=== PATIENT | male | born 1930 | race African-American/Black ===

== ENCOUNTER 2019-07-11 03:06 | Inpatient (IN) | payer OTHER ==
[~2019-07-11] VITALS: Ht 182.9 cm; Wt 79.4 kg
[2019-07-11] VITALS (9 sets, daily range): BP systolic 108–161; BP diastolic 50–78
[2019-07-11] MEDS ORDERED: ONDANSETRON HCL 4MG/2ML INJ IV STA (03:18)
[2019-07-11] MEDS ORDERED: NITROGLYCERIN OINT 1GM/INCH UDPKT TD ONE (03:30)
[2019-07-11 03:43] LABS: BASOPHILS % 0.6 % (0.0-2.0); CHLORIDE 109 mEq/L (98-107); EOSINOPHILS % 1.8 % (0.0-5.0); HEMATOCRIT. 33.1 % (42.0-52.0); LYMPHOCYTES % 8.2 % (20.0-50.0); MEAN CORPUSCULAR HEMOGLOBIN 26.9 pg (28.0-32.0); MEAN CORPUSCULAR VOLUME 81.4 fL (80.0-94.0); MEAN PLATELET VOLUME 7.5 fl (7.4-10.4); NEUTROPHILS % 83.4 % (40.0-76.0); PLATELET 161 x1000/uL (130-400); RED BLOOD CELL COUNT 4.07 mill/uL (4.7-6.1); RED CELL DISTRIBUTION WIDTH 15.6 % (11.6-14.6)
[2019-07-11 04:18] LABS: BG BASE EXCESS -3.7 mmol/L (-2.0-2.0); BG BILEVEL POS AIRWAY PRESSURE 15/5; BG CARBOXYHEMOGLOBIN 0.9 % (0.5-1.5); BG FRACTION INSPIRED OXYGEN 60; BG METHEMOGLOBIN 0.5 % (0.0-1.5); BG OXYHEMOGLOBIN 95.6 % (94.0-97.0); BG PCO2 42.4 mmHg (35.0-45.0); BG PH 7.333 (7.350-7.450); BG PO2 98.1 mmHg (75.0-100.0); BG SAMPLE SITE LEFT RADIAL; BG TOTAL HEMOGLOBIN 12.3 g/dL (12.0-18.0); BG VENT MODE MASK - BIPAP; BG VENT RATE 16 set
[2019-07-11] MEDS ORDERED: MORPHINE SULFATE 2 MG/ML CPJ (NOT FOR IM USE) IV PRN (07:00)
[2019-07-11] MEDS ORDERED: CLONIDINE 0.1MG TABLET PO PRN (07:00)
[2019-07-11] MEDS ORDERED: ONDANSETRON HCL 4MG/2ML INJ IV PRN (07:00)
[2019-07-11] MEDS ORDERED: DOCUSATE SODIUM 100MG CAPSULE PO PRN (07:00)
[2019-07-11] MEDS ORDERED: AMLODIPINE 10MG TABLET PO SCH (09:00)
[2019-07-11] MEDS ORDERED: FUROSEMIDE 40MG/4ML VIAL IV SCH ×2 (09:00→17:15)
[2019-07-11] MEDS ORDERED: ASPIRIN 81MG EC TABLET PO SCH (09:00)
[2019-07-11] MEDS: ACETAMINOPHEN 325MG TABLET PO PRN (12:10)
[2019-07-11] MEDS ORDERED: ENOXAPARIN 40MG/0.4ML SYR SUBCUT SCH (13:00)
[2019-07-11] MEDS ORDERED: NITROGLYCERIN 0.2MG/HR PATCH TOP SCH (14:00)
[2019-07-11] MEDS ORDERED: LEVOFLOXACIN 500MG PREMIX 100 ML IV SCH (14:00)
[2019-07-11] MEDS ORDERED: IPRATROPIUM/ALBUTEROL 0.5-3(2.5)MG/3ML NEB HHN PRN (15:45)
[2019-07-11] MEDS: HYDROCODONE/ACETAMINOPHEN 5/325MG TABLET PO PRN ×2 (17:27→22:02)
[2019-07-11] MEDS ORDERED: DEXTROSE 50% WATER 50ML SYRINGE IV PRN (19:30)
[2019-07-11] MEDS: BLOOD SUGAR DIAGNOSTIC STRIP TEST SCH (21:52)
[2019-07-11] MEDS: ENOXAPARIN 80MG/0.8ML SYR SUBCUT SCH (21:54)
[2019-07-11] MEDS: INSULIN LISPRO 100 UNITS/ML SUBCUT SCH (22:00)
[2019-07-12] VITALS (30 sets, daily range): BP systolic 111–161; BP diastolic 28–109
[2019-07-12] MEDS: IPRATROPIUM/ALBUTEROL 0.5-3(2.5)MG/3ML NEB HHN SCH ×6 (00:35→21:08)
[2019-07-12 01:08] LABS: HEMATOCRIT. 34.1 % (42.0-52.0); HEMOGLOBIN. 11.4 g/dL (14.0-18.0); MEAN CORPUSCULAR HEMOGLOBIN 27.7 pg (28.0-32.0); PLATELET 162 x1000/uL (130-400); RED BLOOD CELL COUNT 4.11 mill/uL (4.7-6.1); RED CELL DISTRIBUTION WIDTH 15.6 % (11.6-14.6)
[2019-07-12 01:14] LABS: CHLORIDE 107 mEq/L (98-107)
[2019-07-12 01:24] LABS: CREATINE KINASE MB FRACTION 60.5 ng/mL (0.5-3.6); D-DIMER 11.69 mg/L FEU (<0.50); HDL CHOLESTEROL 22 mg/dL (40-59); INR 1.2; LDL CHOLESTEROL 85 mg/dL (5-100); PROTHROMBIN TIME 12.7 sec (9.6-11.0)
[2019-07-12 01:25] LABS: CREATINE KINASE 994 IU/L (39-308); T4 FREE 0.98 ng/dL (0.76-1.46)
[2019-07-12] MEDS: ENOXAPARIN 80MG/0.8ML SYR SUBCUT SCH ×2 (03:20→20:29)
[2019-07-12 04:32] LABS: PLATELET ESTIMATE NORMAL
[2019-07-12] MEDS: ACETAMINOPHEN 325MG TABLET PO PRN ×2 (06:56→23:53)
[2019-07-12] MEDS ORDERED: SODIUM CHLORIDE 0.9% 500 ML IV STA (07:22)
[2019-07-12] MEDS: BLOOD SUGAR DIAGNOSTIC STRIP TEST SCH ×5 (07:45→20:29)
[2019-07-12 08:08] LABS: BG BASE EXCESS -1.6 mmol/L (-2.0-2.0); BG BILEVEL POS AIRWAY PRESSURE 15/5; BG CARBOXYHEMOGLOBIN 0.1 % (0.5-1.5); BG DEOXYHEMOGLOBIN 0.9 % (0.0-5.0); BG FRACTION INSPIRED OXYGEN 100; BG HCO3 ACT 23.4 mmol/L (22.0-26.0); BG METHEMOGLOBIN 0.3 % (0.0-1.5); BG OXYGEN SATURATION 99.1 % (92.0-98.5); BG OXYHEMOGLOBIN 98.7 % (94.0-97.0); BG PCO2 40.6 mmHg (35.0-45.0); BG PH 7.378 (7.350-7.450); BG PO2 201.7 mmHg (75.0-100.0); BG SAMPLE SITE RIGHT BRACHIAL; BG TOTAL HEMOGLOBIN 11.4 g/dL (12.0-18.0); BG VENT MODE MASK - BIPAP; BG VENT RATE 16 set
[2019-07-12] MEDS: INSULIN LISPRO 100 UNITS/ML SUBCUT SCH ×3 (08:20→20:30)
[2019-07-12] MEDS: ASPIRIN 81MG TABLET PO SCH (09:28)
[2019-07-12] MEDS ORDERED: SODIUM CHLORIDE 10% FOR INH 15ML VIAL NEB INH SCH (10:00)
[2019-07-12] MEDS: CLOPIDOGREL 75MG TABLET PO SCH (11:58)
[2019-07-12] MEDS ORDERED: VANCOMYCIN 1500MG in DEXTROSE 5% WATER 250ML IV SCH (12:30)
[2019-07-12] MEDS ORDERED: LEVOFLOXACIN 250MG PREMIX 50 ML IV SCH (14:00)
[2019-07-12] MEDS: CEFTRIAXONE 1 G PREMIX 50 ML IV SCH (15:59)
[2019-07-12] MEDS: FAMOTIDINE 20MG/2ML VIAL IV SCH (15:59)
[2019-07-13] VITALS (23 sets, daily range): BP systolic 115–164; BP diastolic 49–98
[2019-07-13] MEDS: MAGNESIUM/ALUMINUM HYDROXIDE/SIMETHICONE 30ML UDC PO PRN ×2 (00:40→06:58)
[2019-07-13] MEDS: IPRATROPIUM/ALBUTEROL 0.5-3(2.5)MG/3ML NEB HHN SCH ×6 (00:53→20:53)
[2019-07-13 05:35] LABS: HEMOGLOBIN. 10.9 g/dL (14.0-18.0); MEAN CORPUSCULAR VOLUME 81.9 fL (80.0-94.0); PLATELET 146 x1000/uL (130-400); RED BLOOD CELL COUNT 4.03 mill/uL (4.7-6.1); RED CELL DISTRIBUTION WIDTH 16.1 % (11.6-14.6)
[2019-07-13] MEDS: BLOOD SUGAR DIAGNOSTIC STRIP TEST SCH ×4 (07:50→20:51)
[2019-07-13 08:23] LABS: BG BASE EXCESS -3.9 mmol/L (-2.0-2.0); BG BILEVEL POS AIRWAY PRESSURE 15/5; BG CARBOXYHEMOGLOBIN 0.2 % (0.5-1.5); BG DEOXYHEMOGLOBIN 4.7 % (0.0-5.0); BG FRACTION INSPIRED OXYGEN 80; BG HCO3 ACT 20.7 mmol/L (22.0-26.0); BG METHEMOGLOBIN 0.3 % (0.0-1.5); BG OXYGEN SATURATION 95.3 % (92.0-98.5); BG OXYHEMOGLOBIN 94.8 % (94.0-97.0); BG PCO2 36.1 mmHg (35.0-45.0); BG PH 7.377 (7.350-7.450); BG PO2 78.6 mmHg (75.0-100.0); BG SAMPLE SITE RIGHT BRACHIAL; BG TOTAL HEMOGLOBIN 10.7 g/dL (12.0-18.0); BG VENT MODE MASK - BIPAP; BG VENT RATE 16 set
[2019-07-13] MEDS: ACETAMINOPHEN 325MG TABLET PO PRN ×2 (08:29→17:34)
[2019-07-13] MEDS: CARVEDILOL 3.125 MG TABLET PO SCH ×2 (08:29→20:51)
[2019-07-13] MEDS: CLOPIDOGREL 75MG TABLET PO SCH (08:29)
[2019-07-13] MEDS: FAMOTIDINE 20MG/2ML VIAL IV SCH (08:29)
[2019-07-13] MEDS: CEFTRIAXONE 1 G PREMIX 50 ML IV SCH (08:29)
[2019-07-13] MEDS: ASPIRIN 81MG TABLET PO SCH (08:29)
[2019-07-13] MEDS: ENOXAPARIN 80MG/0.8ML SYR SUBCUT SCH ×2 (08:30→20:51)
[2019-07-13] MEDS: INSULIN LISPRO 100 UNITS/ML SUBCUT SCH ×4 (08:31→21:03)
[2019-07-13 09:24] LABS: PLATELET ESTIMATE NORMAL
[2019-07-13] MEDS: FUROSEMIDE 40MG/4ML VIAL IVP SCH (09:57)
[2019-07-13] MEDS: METHYLPREDNISOLONE SOD SUCC 40 MG/ML VIAL IV SCH ×2 (09:58→17:33)
[2019-07-13] MEDS ORDERED: VANCOMYCIN 1 G PREMIX 200 ML IV NR (10:00)
[2019-07-13] MEDS ORDERED: KETOROLAC 30MG/ML VIAL IV PRN (13:00)
[2019-07-13] MEDS ORDERED: VANCOMYCIN 750 MG PREMIX 150 ML IV SCH (13:00)
[2019-07-13] MEDS ORDERED: KETOROLAC 15MG/ML VIAL IV PRN (13:30)
[2019-07-13] MEDS: GABAPENTIN 300MG CAPSULE PO SCH (14:11)
[2019-07-13 15:02] LABS: CLARITY URINE TURBID (CLEAR); COLOR URINE YELLOW (YELLOW); KETONES URINE NEGATIVE (NEGATIVE); LEUKOCYTE ESTERASE URINE 2+ (NEGATIVE); NITRITE URINE NEGATIVE (NEGATIVE); OCCULT BLOOD URINE 2+ (NEGATIVE); PROTEIN URINE 2+ (NEGATIVE); SPECIFIC GRAVITY URINE 1.014 (1.005-1.030); UROBILINOGEN URINE 0.2 E.U./dL (0.2-1.0)
[2019-07-13 15:21] LABS: SODIUM URINE RANDOM 94 mEq/L
[2019-07-13] MEDS: LORAZEPAM 2MG/ML CPJ IV PRN (18:50)
[2019-07-14] VITALS (23 sets, daily range): BP systolic 131–175; BP diastolic 28–93
[2019-07-14] MEDS: IPRATROPIUM/ALBUTEROL 0.5-3(2.5)MG/3ML NEB HHN SCH ×5 (00:49→20:14)
[2019-07-14] MEDS: METHYLPREDNISOLONE SOD SUCC 40 MG/ML VIAL IV SCH ×3 (02:00→18:14)
[2019-07-14 05:46] LABS: HEMATOCRIT. 33.6 % (42.0-52.0); HEMOGLOBIN. 11.2 g/dL (14.0-18.0); MEAN CORPUSCULAR HEMOGLOBIN 27.3 pg (28.0-32.0); MEAN CORPUSCULAR VOLUME 81.5 fL (80.0-94.0); MEAN PLATELET VOLUME 8.2 fl (7.4-10.4); PLATELET 162 x1000/uL (130-400); RED BLOOD CELL COUNT 4.12 mill/uL (4.7-6.1); RED CELL DISTRIBUTION WIDTH 16.2 % (11.6-14.6)
[2019-07-14 05:51] LABS: CHLORIDE 112 mEq/L (98-107)
[2019-07-14 06:00] LABS: PHOSPHORUS 1.9 mg/dL (2.5-4.9)
[2019-07-14] MEDS ORDERED: LIDOCAINE HCL 1% 20ML VIAL (Pyxis) INJ ONE (07:33)
[2019-07-14] MEDS ORDERED: SODIUM BICARBONATE 4% (2.4MEQ) 5ML VIAL IV ONE (07:33)
[2019-07-14] MEDS: BLOOD SUGAR DIAGNOSTIC STRIP TEST SCH ×3 (07:50→17:55)
[2019-07-14 08:07] LABS: PLATELET ESTIMATE NORMAL
[2019-07-14] MEDS: CARVEDILOL 3.125 MG TABLET PO SCH (08:08)
[2019-07-14 08:45] LABS: BG BASE EXCESS -3.2 mmol/L (-2.0-2.0); BG BILEVEL POS AIRWAY PRESSURE 15/5; BG CARBOXYHEMOGLOBIN 0.2 % (0.5-1.5); BG DEOXYHEMOGLOBIN 3.5 % (0.0-5.0); BG FRACTION INSPIRED OXYGEN 45; BG HCO3 ACT 20.1 mmol/L (22.0-26.0); BG METHEMOGLOBIN 0.3 % (0.0-1.5); BG OXYGEN SATURATION 96.5 % (92.0-98.5); BG PH 7.443 (7.350-7.450); BG PO2 85.1 mmHg (75.0-100.0); BG SAMPLE SITE RIGHT BRACHIAL; BG VENT MODE MASK - BIPAP; BG VENT RATE 16 set
[2019-07-14] MEDS: CLOPIDOGREL 75MG TABLET PO SCH (09:36)
[2019-07-14] MEDS: ASPIRIN 81MG TABLET PO SCH (09:36)
[2019-07-14] MEDS: GABAPENTIN 300MG CAPSULE PO SCH (09:36)
[2019-07-14] MEDS: CEFTRIAXONE 1 G PREMIX 50 ML IV SCH (09:37)
[2019-07-14] MEDS: ENOXAPARIN 80MG/0.8ML SYR SUBCUT SCH ×2 (09:37→20:10)
[2019-07-14] MEDS: FAMOTIDINE 20MG/2ML VIAL IV SCH (09:37)
[2019-07-14] MEDS: FUROSEMIDE 40MG/4ML VIAL IVP SCH (09:37)
[2019-07-14] MEDS: LORAZEPAM 2MG/ML CPJ IV PRN ×2 (09:38→19:35)
[2019-07-14] MEDS: INSULIN LISPRO 100 UNITS/ML SUBCUT SCH ×3 (09:38→18:04)
[2019-07-14] MEDS: METOPROLOL TARTRATE 25MG TABLET PO SCH ×2 (10:32→20:08)
[2019-07-14] MEDS ORDERED: METOPROLOL TARTRATE 50MG TABLET PO PRN (19:15)
[2019-07-14] MEDS ORDERED: METOPROLOL TARTRATE 25MG TABLET PO NR (19:15)
[2019-07-15 13:11] LABS: *CREATININE RANDOM URINE 38.5 mg/dL (Not Estab.); MICROALBUMIN RANDOM URINE 82.7 ug/mL (Not Estab.)
== END 2019-07-14 20:40 | disposition short-term general hospital (02) | DRG 871 ==
LOC: ER 03:06 → 5EST 05:15 → EDBEDREQSVC 05:17 → EDBEDREQTM 05:17 → EDBEDREQ 05:17 → SUPCPDRO 06:50 → ENRESERV 07:20 → CVICU 07-12 07:10
PROVIDERS: ADMIT Hospitalist; ATTEND Hospitalist
PROC: 5A09357 Assistance with Respiratory Ventilation, Less than 24 Consecutive Hours, Continuous Positive Airway Pressure (ICD-10-PCS; 2019-07-11)
PROC: 5A09357 Assistance with Respiratory Ventilation, Less than 24 Consecutive Hours, Continuous Positive Airway Pressure (ICD-10-PCS; 2019-07-12)
PROC: 5A09357 Assistance with Respiratory Ventilation, Less than 24 Consecutive Hours, Continuous Positive Airway Pressure (ICD-10-PCS; 2019-07-13)
PROC: 05H633Z Insertion of Infusion Device into Left Subclavian Vein, Percutaneous Approach (ICD-10-PCS; principal; 2019-07-14)
PROC: B547ZZA Ultrasonography of Left Subclavian Vein, Guidance (ICD-10-PCS; 2019-07-14)
PROC: 5A09357 Assistance with Respiratory Ventilation, Less than 24 Consecutive Hours, Continuous Positive Airway Pressure (ICD-10-PCS; 2019-07-14)
DX: A41.01 Sepsis due to Methicillin susceptible Staphylococcus aureus (principal); J96.01 Acute respiratory failure with hypoxia; I21.4 Non-ST elevation (NSTEMI) myocardial infarction; I50.43 Acute on chronic combined systolic (congestive) and diastolic (congestive) heart failure; N18.6 End stage renal disease; J18.9 Pneumonia, unspecified organism; J44.1 Chronic obstructive pulmonary disease with (acute) exacerbation; I42.9 Cardiomyopathy, unspecified; N17.9 Acute kidney failure, unspecified; N39.0 Urinary tract infection, site not specified; E87.2 Acidosis; I13.2 Hypertensive heart and chronic kidney disease with heart failure and with stage 5 chronic kidney disease, or end stage renal disease; J44.0 Chronic obstructive pulmonary disease with (acute) lower respiratory infection; R65.20 Severe sepsis without septic shock; E11.22 Type 2 diabetes mellitus with diabetic chronic kidney disease; E11.51 Type 2 diabetes mellitus with diabetic peripheral angiopathy without gangrene; I44.0 Atrioventricular block, first degree; D64.9 Anemia, unspecified; E78.00 Pure hypercholesterolemia, unspecified; F10.10 Alcohol abuse, uncomplicated; E78.5 Hyperlipidemia, unspecified; F12.90 Cannabis use, unspecified, uncomplicated; I35.0 Nonrheumatic aortic (valve) stenosis; M19.90 Unspecified osteoarthritis, unspecified site; I70.0 Atherosclerosis of aorta; M17.10 Unilateral primary osteoarthritis, unspecified knee; S91.209A Unspecified open wound of unspecified toe(s) with damage to nail, initial encounter; X58.XXXA Exposure to other specified factors, initial encounter; R74.0 Nonspecific elevation of levels of transaminase and lactic acid dehydrogenase [LDH]; I45.81 Long QT syndrome; B95.61 Methicillin susceptible Staphylococcus aureus infection as the cause of diseases classified elsewhere; M17.0 Bilateral primary osteoarthritis of knee; Z83.3 Family history of diabetes mellitus; Z82.49 Family history of ischemic heart disease and other diseases of the circulatory system; Z79.4 Long term (current) use of insulin; Y93.89 Activity, other specified; Y92.89 Other specified places as the place of occurrence of the external cause; Y99.8 Other external cause status
CPT/HCPCS: 36415; 36600; 71045; 76770; 76937; 80048; 80061; 80202; 81003; 82043; 82375; 82550; 82553; 82570; 82805; 82962; 83036; 83605; 83735; 83880; 83935; 84100; 84145; 84156; 84300; 84439; 84443; 84484; 85379; 87077; 92610; 93005; 93306; 93308; 93970; 94640; 94660; 99291; C1725; J0696; J1650; J1815; J1940; J1956; J2060; J2405; J2920; J3370; J3490; J7060; J7131; J7620